=== PATIENT | male | born 1960 | race Caucasian/White ===

== ENCOUNTER 2020-01-06 20:20 | Emergency (ER) | payer MEDICAID, OTHER ==
[2020-01-06] MEDS ORDERED: Metoprolol Tartrate 5 MG/5 ML SDV IVPUSH ONE ×2 (20:26→21:14)
[2020-01-06 21:06] LABS: CHLORIDE,CL 95 mmol/L (98-107); SODIUM,NA 130 mmol/L (136-145)
[2020-01-06] MEDS ORDERED: LORazepam 2 MG/ML SDV IVPUSH ONE (21:19)
[2020-01-06] MEDS: Sodium Chloride 0.9% 10 ML Syringe FLUSH PRN ×2 (21:19→21:35)
--- NOTE | 2020-01-06 21:47 | EDM.PDOC ---
ED HPI GENERAL MEDICAL PROBLEM - General Chief Complaint: General Stated Complaint: coughing up blood Time Seen by Provider: 01/06/20 20:22 Source of Information: Reports: Patient History Limitations: Reports: No Limitations - History of Present Illness INITIAL COMMENTS - FREE TEXT/NARRATIVE: Patient comes to ER complaining of coughing up bright red blood when "he swallowed beer wrong" and ended up with coughing fit. Second episode happened prior to arrival to ER. History of heavy tobacco use/daily ETOH use/HTN/previous blood clots in legs. Does not follow up and is non-compliant with medications including Warfarin. Reports some epigastric discomfort at times/notes his belly has gotten bigger recently. During ROS he says he otherwise feels fine. 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 [No Known Home Meds] 01/06/20 [History] Past Medical History Cardiovascular History: Reports: Blood Clots/VTE/DVT, Hypertension Respiratory History: Reports: COPD Psychiatric History: Reports: Addiction (suspect ETOH abuse/dependence) - History Comment History Comment: Noncompliance with recommended treatments Social & Family History - Tobacco Use Smoking Status *Q: Current Every Day Smoker Years of Tobacco use: 40 Packs/Tins Daily: 2 Smoking Cessation Information Provided To Patient: Patient Refused - Caffeine Use Caffeine Use: Reports: Soda - Alcohol Use Days Per Week of Alcohol Use: 7 Number of Drinks Per Day: 8 Total Drinks Per Week: 56 Alcohol Use Frequency: Daily - Recreational Drug Use Recreational Drug Use: No ED ROS GENERAL - Review of Systems Review Of Systems: See Below Constitutional: Reports: No Symptoms HEENT: Reports: No Symptoms Respiratory: Reports: Hemoptysis. Denies: Shortness of Breath, Wheezing, Pleuritic Chest Pain Cardiovascular: Reports: Blood Pressure Problem, Lightheadedness (chronic). Denies: Chest Pain, Dyspnea on Exertion, Edema, Palpitations, Syncope GI/Abdominal: Denies: Black Stool, Bloody Stool, Constipation, Diarrhea, Decreased Appetite, Hematemesis, Nausea, Vomiting : Reports: No Symptoms Musculoskeletal: Reports: No Symptoms Skin: Reports: No Symptoms Neurological: Reports: Dizziness (chronic) Psychiatric: Reports: No Symptoms Hematologic/Lymphatic: Reports: No Symptoms ED EXAM, GENERAL - Physical Exam Exam: See Below Exam Limited By: No Limitations General Appearance: Alert, WD/WN, No Apparent Distress, Other (smells of ETOH) Eye Exam: Bilateral Eye: EOMI, PERRL Ears: Hearing Grossly Normal Nose: No: Nasal Deformity, Nasal Swelling, Nasal Drainage Throat/Mouth: Normal Lips, Normal Oropharynx, Normal Voice, No Airway Compromise Head: Atraumatic, Normocephalic Neck: Normal Inspection, Supple, Non-Tender, Full Range of Motion. No: Lymphadenopathy (L), Lymphadenopathy (R) Respiratory/Chest: No Respiratory Distress, No Accessory Muscle Use, Chest Non-Tender, Wheezing (faint/scattered). No: Crackles, Rales, Rhonchi Cardiovascular: Regular Rate, Rhythm, No Edema, No Murmur Peripheral Pulses: 2+: Radial (L), Radial (R) GI/Abdominal: Soft, Non-Tender, Other (round protuberant belly). No: Guarding, Rigid, Rebound, Tender (Male) Exam: Deferred Rectal (Males) Exam: Deferred Back Exam: Normal Inspection Extremities: Normal Inspection, Non-Tender, Normal Capillary Refill Neurological: Alert, Oriented, Normal Cognition, Normal Gait, No Motor/Sensory Deficits Psychiatric: Normal Affect, Normal Mood Skin Exam: Warm, Dry, Intact, Normal Color EKG INTERPRETATION EKG Date: 01/06/20 Time: 20:35 Rhythm: NSR Rate (Beats/Min): 96 [place]: Normal P-Wave: Present QRS: Normal ST-T: Other (no obvious acute depression/elevation suggestive of ischemia) QT: Normal Comparison: NA - No Prior EKG Course - Vital Signs Last Recorded V/S: Last Vital Signs Temp 36.9 C 01/06/20 20:21 Pulse 94 01/06/20 21:19 Resp 16 01/06/20 20:51 BP 226/117 H 01/06/20 21:19 Pulse Ox 96 01/06/20 20:51 - Orders/Labs/Meds Orders: Active Orders 24 hr Category Date Time Status EKG Documentation Completion [RC] ASDIRECTED Care 01/06/20 20:28 Ordered Chest 2V [CR] Stat Exams 01/06/20 20:23 Ordered Sodium Chloride 0.9% [Saline Flush] Med 01/06/20 20:39 Active 10 ml FLUSH ASDIRECTED PRN Medication Orders Sodium Chloride (Saline Flush) 10 ml FLUSH ASDIRECTED PRN PRN Reason: Saline flush Last Admin: 01/06/20 21:35 Dose: 10 ml Documented by: Admin: 01/06/20 21:19 Dose: 10 ml Documented by: MIKE Labs: Laboratory Tests 01/06/20 01/06/20 01/06/20 Range/Units 20:34 20:34 20:34 WBC 9.3 (4.0-10.2) K/uL RBC 4.80 (4.33-5.41) M/uL Hgb 16.7 (13.1-16.8) g/dL Hct 47.2 (39.0-49.0) % MCV 98.3 H (84.0-98.0) fL MCH 34.8 H (28.2-33.3) pg MCHC 35.4 (31.7-36.0) g/dL RDW 13.5 (11.2-14.1) % Plt Count 177 (150-350) K/uL Neut % (Auto) 62.8 (45.0-80.0) % Lymph % (Auto) 22.8 (10.0-50.0) % [place] % (Auto) 13.4 (2.0-14.0) % Eos % (Auto) 0.4 (0.0-5.0) % Baso % (Auto) 0.6 (0.0-2.0) % Neut # (Auto) 5.80 (1.40-7.00) K/uL Lymph # (Auto) 2.11 (0.50-3.50) K/uL [place] # (Auto) 1.24 H (0.00-1.00) K/uL Eos # (Auto) 0.04 (0.00-0.50) K/uL Baso # (Auto) 0.06 (0.00-0.20) K/uL D-Dimer, Quantitative (0-400) ng/mL Sodium 130 L (136-145) mmol/L Potassium 3.4 L (3.5-5.1) mmol/L Chloride 95 L (98-107) mmol/L Carbon Dioxide 24.7 (21.0-32.0) mmol/L BUN 11 (7-18) mg/dL Creatinine 0.97 (0.51-1.17) mg/dL Est Cr Clr Drug Dosing 81.29 mL/min Estimated GFR (MDRD) > 60 mL/min Glucose 96 (74-106) mg/dL Lactic Acid 2.7 H (0.4-2.0) mmol/L Calcium 8.7 (8.5-10.1) mg/dL Magnesium 1.8 (1.8-2.4) mg/dL Total Bilirubin 0.6 (0.2-1.0) mg/dL AST 29 (15-37) U/L ALT 28 (12-78) U/L Alkaline Phosphatase 103 (46-116) IU/L Troponin I 0.007 (0.000-0.056) ng/mL NT-Pro-B Natriuret Pep 361 H (0-125) pg/mL Total Protein 7.9 (6.4-8.2) g/dL Albumin 3.8 (3.4-5.0) g/dL Ethyl Alcohol (0.000-0.080) g/dL 01/06/20 01/06/20 Range/Units 20:34 20:34 WBC (4.0-10.2) K/uL RBC (4.33-5.41) M/uL Hgb (13.1-16.8) g/dL Hct (39.0-49.0) % MCV (84.0-98.0) fL MCH (28.2-33.3) pg MCHC (31.7-36.0) g/dL RDW (11.2-14.1) % Plt Count (150-350) K/uL Neut % (Auto) (45.0-80.0) % Lymph % (Auto) (10.0-50.0) % [place] % (Auto) (2.0-14.0) % Eos % (Auto) (0.0-5.0) % Baso % (Auto) (0.0-2.0) % Neut # (Auto) (1.40-7.00) K/uL Lymph # (Auto) (0.50-3.50) K/uL [place] # (Auto) (0.00-1.00) K/uL Eos # (Auto) (0.00-0.50) K/uL Baso # (Auto) (0.00-0.20) K/uL D-Dimer, Quantitative 1240 H (0-400) ng/mL Sodium (136-145) mmol/L Potassium (3.5-5.1) mmol/L Chloride (98-107) mmol/L Carbon Dioxide (21.0-32.0) mmol/L BUN (7-18) mg/dL Creatinine (0.51-1.17) mg/dL Est Cr Clr Drug Dosing mL/min Estimated GFR (MDRD) mL/min Glucose (74-106) mg/dL Lactic Acid (0.4-2.0) mmol/L Calcium (8.5-10.1) mg/dL Magnesium (1.8-2.4) mg/dL Total Bilirubin (0.2-1.0) mg/dL AST (15-37) U/L ALT (12-78) U/L Alkaline Phosphatase (46-116) IU/L Troponin I (0.000-0.056) ng/mL NT-Pro-B Natriuret Pep (0-125) pg/mL Total Protein (6.4-8.2) g/dL Albumin (3.4-5.0) g/dL Ethyl Alcohol 0.097 H (0.000-0.080) g/dL Meds: Medications Generic Name Dose Route Start Last Admin Trade Name Freq PRN Reason Stop Dose Admin Sodium Chloride 10 ml 01/06/20 20:39 01/06/20 21:35 Saline Flush FLUSH 10 ml ASDIRECTED PRN Administration Saline flush Discontinued Medications Generic Name Dose Route Start Last Admin Trade Name Freq PRN Reason Stop Dose Admin Lorazepam 1 mg 01/06/20 21:19 01/06/20 21:34 Ativan IVPUSH 01/06/20 21:20 1 mg ONETIME ONE Administration Metoprolol Tartrate 5 mg 01/06/20 20:26 01/06/20 20:33 Lopressor IVPUSH 01/06/20 20:27 5 mg ONETIME ONE Administration Metoprolol Tartrate 5 mg 01/06/20 21:14 01/06/20 21:19 Lopressor IVPUSH 01/06/20 21:15 5 mg ONETIME ONE Administration - Radiology Interpretation Free Text/Narrative:: Chest xray unremarkable for acute focal changes - Re-Assessments/Exams Free Text/Narrative Re-Assessment/Exam: 01/06/20 21:49 Patient coughed up additional bright red blood while in ER. No emesis noted. BP remained high, despite two doses Lopressor. Single dose Ativan added. Normal WBC/Hgb. ETOH almost 0.1 Chem showed hyponatremia/mild decrease K Lactic acid and DDimer elevated. ProBNP elevated mildly. Troponin normal. Given continued hemoptysis/hx ETOH there is concern for esophageal varices in addition to the persistent significantly elevated BP. Patient would benefit from endoscopy to assess bleeding source. Call placed to [facility]. Patient accepted for transfer by hospitalist . Patient refuses to go by EMS. Will instead go by car driven by sister. Currently waiting for bed confirmation. No additional antihypertensives given at this time. Suspect he has been el evated for quite some time/chronic, possible exacerbation given having to come to ER tonight. [facility] will continue evaluation. Departure - Departure Time of Disposition: 21:56 Disposition: DC/Tfer to Acute Hospital 02 Condition: Good Clinical Impression: Hypertensive urgency, Hemoptysis, H/O noncompliance with medical treatment, presenting hazards to health, ETOH abuse - Discharge Information *PRESCRIPTION DRUG MONITORING PROGRAM REVIEWED*: Not Applicable *COPY OF PRESCRIPTION DRUG MONITORING REPORT IN PATIENT CONSTANTIN: Not Applicable Referrals: Marysol Vásquez SPEECH/LANGUAGE THERAPIST [Primary Care Provider] - Additional Instructions: Drive directly to [facility] in [place] and present to ER. They are expecting you . If you have any problems on way up, call 911 Sepsis Event Note (ED) - Evaluation Sepsis Screening Result: No Definite Risk - Focused Exam Vital Signs: Vital Signs Temp Pulse Pulse Resp BP BP Pulse Ox 01/06/20 21:19 94 226/117 H 01/06/20 20:51 96 16 236/119 H 96 01/06/20 20:47 91 15 227/126 H 94 L 01/06/20 20:33 104 H 231/119 H 01/06/20 20:28 92 15 238/122 H 92 L 01/06/20 20:21 36.9 C 124 H 18 255/123 H 92 L - My Orders Last 24 Hours: My Active Orders 01/06/20 20:23 Chest 2V [CR] Stat 01/06/20 20:28 EKG Documentation Completion [RC] ASDIRECTED 01/06/20 20:39 Sodium Chloride 0.9% [Saline Flush] 10 ml FLUSH ASDIRECTED PRN - Assessment/Plan Last 24 Hours: My Active Orders 01/06/20 20:23 Chest 2V [CR] Stat 01/06/20 20:28 EKG Documentation Completion [RC] ASDIRECTED 01/06/20 20:39 Sodium Chloride 0.9% [Saline Flush] 10 ml FLUSH ASDIRECTED PRN
== END 2020-01-06 22:20 ==
LOC: LL.ED 20:20
DX: R04.2 Hemoptysis (principal); I16.0 Hypertensive urgency; F10.10 Alcohol abuse, uncomplicated; F17.210 Nicotine dependence, cigarettes, uncomplicated; Z91.19 Patient's noncompliance with other medical treatment and regimen
CPT/HCPCS: 36415; 71046; 80053; 80307; 83605; 83735; 83880; 84484; 85025; 85379; 93005; 96374; 96375; 96376; 99285-25; J2060; J3490

== ENCOUNTER 2021-08-21 22:50 | Emergency (ER) | payer OTHER ==
[2021-08-21 23:37] LABS: CHLORIDE,CL 91 mmol/L (98-107); SODIUM,NA 125 mmol/L (136-145)
[2021-08-21 23:38] LABS: ANION GAP 16.4 meq/L (7-15)
== END 2021-08-22 00:15 | disposition home or self-care (01) ==
LOC: LL.ED 22:50
DX: E86.0 Dehydration (principal); E87.1 Hypo-osmolality and hyponatremia; F10.10 Alcohol abuse, uncomplicated; J44.9 Chronic obstructive pulmonary disease, unspecified; I10 Essential (primary) hypertension; Z79.01 Long term (current) use of anticoagulants; Z79.899 Other long term (current) drug therapy
CPT/HCPCS: 36415; 80048; 80307; 81001; 85025; 99283